=== PATIENT | male | born 1985 | race Caucasian/White ===

== ENCOUNTER 2016-07-29 10:53 | Emergency (ER) | payer OTHER ==
[~2016-07-29] VITALS: Ht 177.8 cm; Wt 90.5 kg
[~2016-07-29 10:53] MED LIST: DULO20 PO; PENI500T PO; ZOCO40TA PO
[2016-07-29 10:56] VITALS: BP 136/70; PULSE 68; RESP 20; TEMP 98; O2SAT 97
--- NOTE | 2016-07-29 11:36 | PD ---
HPI Chief Complaint: Numbness/Tingling Time Seen by Provider: 11:36 Travel History International Travel<30 days: No Contact w/Intl Traveler<30days: No Traveled to known affect area: No History of Present Illness HPI 30-year-old male with no significant medical history, presents to the emergency department for evaluation of isolated facial paresthesia in the temporal area. Patient states this started 2 days ago. He thought he may have slept on it wrong. He states it has persisted over the last 2 days and he contacted his primary care provider who told him to come to the emergency department for evaluation. Denies headache. No dizziness. No other focal deficits or weakness. No visual changes. No recent illnesses, fever, or chills. No other symptoms to report. PFSH Past Medical History Medical History: Denies Significant Hx Social History Alcohol Use: No Tobacco Use: No Substance Use: No Allergies-Medications (Allergen,Severity, Reaction): Coded Allergies: No Known Allergies (Unverified , 07/29/16) Reported Meds & Prescriptions Reported Meds & Active Scripts Active Pen Vk (Penicillin V Potassium) 500 Mg Tab 500 Mg PO Q12HR 10 Days Reported Zocor 40 mg (Simvastatin) 40 Mg Tab 0.5 Tab PO HS Cymbalta (Duloxetine HCl) 20 Mg Cap Unknown Dose PO DAILY Review of Systems Except as stated in HPI: all other systems reviewed are Neg Physical Exam Narrative GENERAL: Well-nourished male patient, in no acute distress SKIN: Warm and dry. HEAD: Atraumatic. Normocephalic. EYES: Pupils equal and round. No scleral icterus. No injection or drainage. ENT: No nasal bleeding or discharge. Mucous membranes pink and moist. NECK: Trachea midline. No JVD. CARDIOVASCULAR: Regular rate and rhythm. No murmur appreciated. RESPIRATORY: No accessory muscle use. Clear to auscultation. Breath sounds equal bilaterally. GASTROINTESTINAL: Abdomen soft, non-tender, nondistended. Hepatic and splenic margins not palpable. MUSCULOSKELETAL: No obvious deformities. No clubbing. No cyanosis. No edema. NEUROLOGICAL: Awake and alert. No obvious cranial nerve deficits except for isolated alteration in sensation lateral to the right eyebrow extending over the temporal lobe about 3 inches. Motor grossly within normal limits. Normal speech. PSYCHIATRIC: Appropriate mood and affect; insight and judgment normal. Data Data Last Documented VS Vital Signs Date Time Temp Pulse Resp B/P Pulse Ox O2 Delivery O2 Flow Rate FiO2 07/29/16 10:56 98.0 68 20 136/70 97 Room Air Orders Mri Brain W/O Contrast (07/29/16 ) MDM Medical Decision Making Medical Screen Exam Complete: Yes Emergency Medical Condition: Yes Medical Record Reviewed: Yes Differential Diagnosis Isolated neuralgia versus trigeminal neuralgia versus herpetic pre-drome versus intracranial etiology Narrative Course 30-year-old male presents to emergency department for evaluation. Patient appears well and without stress. I discussed the patient Dr. brandt. She recommends moving forward with MRI of the brain without contrast. 1415 MRI results normal examination. Patient is discharged home to follow-up with primary care provider. Diagnosis Primary Impression: Facial paresthesia Referrals: Primary Care Physician Patient Instructions: General Instructions, Paresthesia (ED) Additional Instructions: Follow-up with a primary care provider Return immediately with any acute worsening of symptoms Med/Other Pt SpecificInfo: No Change to Meds Disposition: 01 DISCHARGE HOME Condition: Stable Janet Craig Jul 29, 2016 11:36
--- NOTE | 2016-07-29 13:55 | RADRPT ---
EXAM DATE/TIME: 07/29/2016 13:35 [facility] COMPARISON: No previous studies available for comparison. INDICATIONS : Isolated right side temporal numbness. Neuralgia. MEDICAL HISTORY : None. SURGICAL HISTORY : None. ENCOUNTER: Initial ACUITY: 3 day PAIN SCORE: 0/10 LOCATION: cranial TECHNIQUE: Multiplanar, multisequence MRI of the brain was performed without contrast. FINDINGS: CEREBRUM: The ventricles are normal for age. No evidence of midline shift, mass lesion, hemorrhage or acute in farction. No extraaxial fluid collections are seen. The pituitary gland and suprasellar cistern are normal in configuration. WHITE MATTER: No significant signal abnormalities are seen in the white matter. POSTERIOR FOSSA: The cerebellum and brainstem are intact. The 4th ventricle is midline. The cerebellopontine angle is unremarkable. The cerebellar tonsils are normal in position. DIFFUSION IMAGING: No focal areas of restricted diffusion are seen. No evidence of acute infarction. EXTRACRANIAL: The visualized portions of the orbits and paranasal sinuses are unremarkable. CONCLUSION: Normal examination. Julio Armas MD on July 29, 2016 at 13:52 Board Certified Radiologist. This report was verified electronically.
[2016-07-29] MEDS ORDERED: DULO20 PO (14:39)
[2016-07-29] MEDS ORDERED: ZOCO40TA PO (14:39)
[2016-07-29] MEDS ORDERED: ZETI10TA5 PO (14:39)
== END 2016-07-29 15:04 | disposition home or self-care (01) ==
LOC: NETRI 10:53
DX: R20.2 Paresthesia of skin (principal)
CPT/HCPCS: 70551